=== PATIENT | female | born 1965 | race Caucasian/White ===

== ENCOUNTER → 2020-04-30 | Outpatient (CLI) | payer BC | LOC: KOH-I 08:00 | DX: M25.511 Pain in right shoulder (principal); M77.8 Other enthesopathies, not elsewhere classified; M19.011 Primary osteoarthritis, right shoulder; M75.51 Bursitis of right shoulder | CPT/HCPCS: 73221 ==

== ENCOUNTER → 2020-09-25 | Outpatient (CLI) | payer BC | LOC: KOH-I 09:26 | DX: M54.5 Low back pain (principal); M51.36 Other intervertebral disc degeneration, lumbar region | CPT/HCPCS: 72148 ==